=== PATIENT | male | born 1965 | race Caucasian/White ===

== ENCOUNTER 2017-07-20 16:27 | Emergency (ER) | payer BC ==
[~2017-07-20] VITALS: Ht 177.8 cm; Wt 83.0 kg
[~2017-07-20 16:27] MED LIST: ALPR0.255 PO; Acetaminophen PO; FLUT1DIS28 INH; GUAI600T53 PO; HYDR-3326 PO; LACT1CAP57 PO
--- NOTE | 2017-07-20 16:49 | NUR ---
Patient is AOX4, refusing CT scan, MD notified.
--- NOTE | 2017-07-20 16:50 | NUR ---
Patient is also refusing IV MD val notified
[2017-07-20 17:00] LABS: *BLOOD, URINE Trace-lysed (NEGATIVE); *COLOR,URINE DARK YELLOW (YELLOW); *KETONES,URINE NEGATIVE (NEGATIVE); *PROTEIN,URINE 1+ (NEGATIVE); *UROBILINOGEN,URINE 0.2 E.U./dl (NORMAL); LEUKOCYTE ESTERASE ,URINE NEGATIVE (NEGATIVE); NITRITE, URINE NEGATIVE (NEGATIVE); UGLUCOSE NEGATIVE (NEGATIVE)
[2017-07-20] MEDS ORDERED: IV NORMAL SALINE 1000 ML BAG IV ONE (17:00)
[2017-07-20] MEDS ORDERED: HYDROMORPHONE 1 MG/1 ML DISP.SYRIN IV ONE (17:00)
[2017-07-20] MEDS ORDERED: ONDANSETRON 4 MG/2 ML VIAL IV ONE (17:00)
[2017-07-20] MEDS ORDERED: LIOT25TA9 PO (17:02)
[2017-07-20] MEDS ORDERED: POLY119P2 PO (17:02)
[2017-07-20] MEDS ORDERED: MECL-102 PO (17:02)
[2017-07-20] MEDS ORDERED: HYDROMORPHONE 2 MG/1 ML DISP.SYRIN ONE (17:05)
[2017-07-20] MEDS ORDERED: ONDANSETRON 4 MG/2 ML VIAL ONE (17:05)
[2017-07-20 17:08] LABS: BASOPHILS % (AUTO) 0.7 % (0.0-2.0); EOSINOPHILS # (AUTO) 0.1 K/uL (0.0-0.7); EOSINOPHILS % (AUTO) 1.4 % (0.0-7.0); HEMATOCRIT 46.6 % (40-50); HEMOGLOBIN 15.4 G/DL (14.0-18.0); LYMPHOCYTES # (AUTO) 0.9 K/UL (0.8-4.8); LYMPHOCYTES % (AUTO) 13.7 % (20.5-51.5); MEAN CORPUSCULAR HEMOGLOBIN 31.1 UUG (27.0-31.0); MEAN CORPUSCULAR HGB CONC 33 g/dL (32.0-37.0); MONOCYTES # (AUTO) 0.6 K/UL (0.1-1.30); MONOCYTES % (AUTO) 9.8 % (0.0-11.0); NEUTROPHILS # (AUTO) 4.9 K/UL (1.8-8.9); NEUTROPHILS % (AUTO) 74.4 % (38.5-71.5); PLATELET COUNT (AUTO) 207 K/UL (150-450); RED BLOOD CELL COUNT(AUTO) 4.96 MIL/UL (4.7-6.1); WHITE BLOOD COUNT (AUTO) 6.5 K/UL (4.0-11.2)
[2017-07-20 17:14] LABS: CREATININE 1.1 mg/dL (0.6-1.3)
[2017-07-20 17:20] LABS: BILIRUBIN,DIRECT 0.1 mg/dL (0.0-0.2); BILIRUBIN,TOTAL 0.3 mg/dL (0.2-1.0)
[2017-07-20 17:26] LABS: *BILIRUBIN,URIN NEGATIVE (NEGATIVE); *CLARITY,URINE SLIGHTLY HAZY (CLEAR)
[2017-07-20 17:27] LABS: MUCUS,URINE MANY /LPF (0-FEW); WBC,URINE 0-3 /HPF (0-3)
--- NOTE | 2017-07-20 17:56 | NUR ---
Patient is resting comfortably on gurney while watching TV, pt refused pains medicines, still for U/S.
--- NOTE | 2017-07-20 18:22 | NUR ---
PATIENT IS PAIN FREE AT THIS TIME. IV removed. Catheter intact and site benign. Pressure and 4x4 gauze applied to site. No bleeding noted. Patient discharged to home in stable conditon. Written and verbal after care instructions given to patient and family members. Patient and family verbalized understanding of instructions.
== END 2017-07-20 18:26 | disposition home or self-care (01) ==
LOC: ER 16:33
DX: G89.18 Other acute postprocedural pain (principal); R10.11 Right upper quadrant pain; J45.909 Unspecified asthma, uncomplicated; K21.9 Gastro-esophageal reflux disease without esophagitis; Z86.010 Personal history of colon polyps
CPT/HCPCS: 36415; 71010; 76705; 80048; 80076; 81001; 83690; 84484; 85025; 85730; 96361; 96374; 99285; A4663; J1170; J2405; J7030 ×2; 70030-TC

== ENCOUNTER 2017-08-17 20:52 | Emergency (ER) | payer BC ==
[~2017-08-17] VITALS: Ht 177.8 cm; Wt 78.9 kg
[~2017-08-17 20:52] MED LIST changes: -HYDR-3326 PO; -LACT1CAP57 PO; +LIOT25TA9 PO; +MECL-102 PO; +POLY119P2 PO
--- NOTE | 2017-08-17 21:35 | NUR ---
PATIENT WALKED INTO ER C/O SOB X 2HRS WITH FEVER,CHILLS. PATIENT STATES SYMPTOMS STARTED 3 DAYS AGO. HAS WHEEZING.
[2017-08-17] MEDS ORDERED: ACETAMINOPHEN ES 500 MG TABLET PO ONE (22:00)
[2017-08-17] MEDS ORDERED: methylPREDNISolone SOD SUCC 125 MG/2 ML VIAL IV ONE (22:00)
[2017-08-17] MEDS ORDERED: IPRATROPIUM BROMIDE 0.5 MG/2.5 ML NEBU NEB ONE ×2 (22:00→22:45)
[2017-08-17] MEDS ORDERED: IV NORMAL SALINE 1000 ML BAG IV ONE (22:00)
[2017-08-17] MEDS ORDERED: ALBUTEROL SULFATE 2.5 MG/3 ML NEBU NEB ONE ×2 (22:00→22:45)
[2017-08-17] MEDS ORDERED: ACETAMINOPHEN ES 500 MG TABLET ONE (22:15)
[2017-08-17] MEDS ORDERED: methylPREDNISolone SOD SUCC 125 MG/2 ML VIAL ONE (22:15)
[2017-08-17 22:16] LABS: EOSINOPHILS # (AUTO) 0.2 K/uL (0.0-0.7); EOSINOPHILS % (AUTO) 3.3 % (0.0-7.0); HEMATOCRIT 44.2 % (36.7-47.1); HEMOGLOBIN 15.1 g/dL (12.5-16.3); LYMPHOCYTES # (AUTO) 0.7 K/uL (20.0-40.0); LYMPHOCYTES % (AUTO) 14.2 % (20.5-51.5); MEAN CORPUSCULAR HEMOGLOBIN 32.2 uug (23.8-33.4); MEAN CORPUSCULAR HGB CONC 34 g/dL (32.5-36.3); MEAN CORPUSCULAR VOLUME 94.2 fL (73.0-96.2); MONOCYTES # (AUTO) 0.6 K/uL (2.0-10.0); NEUTROPHILS # (AUTO) 3.3 K/uL (1.8-8.9); NEUTROPHILS % (AUTO) 69.5 % (38.5-71.5); PLATELET COUNT (AUTO) 184 K/uL (152-348); RED BLOOD CELL COUNT(AUTO) 4.69 MIL/uL (4.06-5.63); WHITE BLOOD COUNT (AUTO) 4.8 K/uL (3.6-10.2)
[2017-08-17] MEDS ORDERED: IPRATROPIUM BROMIDE 0.5 MG/2.5 ML NEBU ONE ×2 (22:18→23:28)
[2017-08-17] MEDS ORDERED: ALBUTEROL SULFATE 2.5 MG/3 ML NEBU ONE ×2 (22:18→23:28)
[2017-08-17 22:20] LABS: CREATININE 1.1 mg/dL (0.6-1.3); POTASSIUM 3.9 mmol/L (3.5-5.1)
[2017-08-17 22:27] LABS: BILIRUBIN,DIRECT 0.1 mg/dL (0.0-0.2); BILIRUBIN,TOTAL 0.3 mg/dL (0.2-1.0); TOTAL PROTEIN, SERUM 7.2 g/dL (6.4-8.2)
--- NOTE | 2017-08-17 23:52 | NUR ---
PATIENT STATES "I'AM FEELING BETTER." PATIENT WATCHING TV WITH FAMILY AT BEDSIDE
--- NOTE | 2017-08-18 00:03 | NUR ---
IV removed. Catheter intact and site benign. Pressure and 4x4 gauze applied to site. No bleeding noted.
[2017-08-18 00:04] VITALS: BP 128/75
--- NOTE | 2017-08-18 00:05 | NUR ---
Patient discharged to home in stable conditon WITH FAMILY TAKING PATIENT HOME. Written and verbal after care instructions given. Patient verbalizes understanding of instructions.
== END 2017-08-18 00:05 | disposition home or self-care (01) ==
LOC: ER 21:02
DX: J20.9 Acute bronchitis, unspecified (principal); J45.909 Unspecified asthma, uncomplicated; K21.9 Gastro-esophageal reflux disease without esophagitis
CPT/HCPCS: 36415; 70030-TC; 83605; 85025; 85730; 87040; 87400; 93005; A4663; J2930; J3590; J7030

== ENCOUNTER 2018-01-27 19:34 | Emergency (ER) | payer BC ==
[~2018-01-27] VITALS: Ht 177.8 cm; Wt 71.2 kg
--- NOTE | 2018-01-27 19:50 | NUR ---
DR CHASITY BERUMEN MD AT BEDSIDE FOR MSE.
--- NOTE | 2018-01-27 20:04 | NUR ---
LAB AT PT BEDSIDE FOR BLOOD DRAW.
[2018-01-27 20:06] LABS: BASOPHILS # (AUTO) 0.1 K/uL (0.0-8.0); BASOPHILS % (AUTO) 1.4 % (0.0-2.0); EOSINOPHILS # (AUTO) 0.4 K/uL (0.0-0.7); EOSINOPHILS % (AUTO) 6.1 % (0.0-7.0); HEMATOCRIT 43.6 % (36.7-47.1); HEMOGLOBIN 14.8 g/dL (12.5-16.3); LYMPHOCYTES % (AUTO) 33.1 % (20.5-51.5); MEAN CORPUSCULAR HEMOGLOBIN 32.7 uug (23.8-33.4); MEAN CORPUSCULAR HGB CONC 34 g/dL (32.5-36.3); MEAN CORPUSCULAR VOLUME 96.4 fL (73.0-96.2); MONOCYTES # (AUTO) 0.5 K/uL (2.0-10.0); MONOCYTES % (AUTO) 8.1 % (0.0-11.0); NEUTROPHILS # (AUTO) 3.1 K/uL (1.8-8.9); NEUTROPHILS % (AUTO) 51.3 % (38.5-71.5); PLATELET COUNT (AUTO) 210 K/uL (152-348); RED BLOOD CELL COUNT(AUTO) 4.52 MIL/uL (4.06-5.63); WHITE BLOOD COUNT (AUTO) 6.1 K/uL (3.6-10.2)
[2018-01-27 20:14] LABS: CREATININE 1.1 mg/dL (0.6-1.3); POTASSIUM 4.2 mmol/L (3.5-5.1)
[2018-01-27 20:19] LABS: BILIRUBIN,DIRECT 0.1 mg/dL (0.0-0.2); BILIRUBIN,TOTAL 0.5 mg/dL (0.2-1.0); TOTAL PROTEIN, SERUM 7.2 g/dL (6.4-8.2)
--- NOTE | 2018-01-27 20:29 | NUR ---
PT AMBULATED TO AND FROM BATHROOM W/ STEADY GAIT. DENIES SOB, N/V, DIZZINESS.
[2018-01-27 20:37] LABS: *BILIRUBIN,URIN NEGATIVE (NEGATIVE); *BLOOD, URINE NEGATIVE (NEGATIVE); *CLARITY,URINE CLEAR (CLEAR); *COLOR,URINE YELLOW (YELLOW); *KETONES,URINE NEGATIVE (NEGATIVE); *PROTEIN,URINE NEGATIVE (NEGATIVE); *UROBILINOGEN,URINE 0.2 E.U./dl (NORMAL); LEUKOCYTE ESTERASE ,URINE NEGATIVE (NEGATIVE); NITRITE, URINE NEGATIVE (NEGATIVE); UGLUCOSE NEGATIVE (NEGATIVE)
[2018-01-27 20:39] LABS: BACTERIA,URINE MODERATE /HPF (NONE SEEN); RBC,URINE 0-3 /HPF (0-3); SQUAMOUS EPITHELIAL CELL,UR FEW /HPF (NONE SEEN); WBC,URINE 0-3 /HPF (0-3)
--- NOTE | 2018-01-27 20:43 | NUR ---
Patient discharged to home in stable conditon. Written and verbal after care instructions given. Patient verbalizes understanding of instructions. Pt ambulated from ER w/ steady gait. Denies LI, dizziness, N/V, SOB, CP. No distress noted. Pt took all personal belongings. Accompanied by significant other.
[2018-01-27 20:45] VITALS: BP 122/78
== END 2018-01-27 20:45 | disposition home or self-care (01) ==
LOC: ER 19:36
DX: R42 Dizziness and giddiness (principal); R53.1 Weakness; J45.909 Unspecified asthma, uncomplicated; K21.9 Gastro-esophageal reflux disease without esophagitis; G43.909 Migraine, unspecified, not intractable, without status migrainosus; Z79.899 Other long term (current) drug therapy
CPT/HCPCS: 36415; 80048; 80076; 81001; 83690; 84484; 85025; 93005; 99285; A4663; 70030-TC

== ENCOUNTER 2020-02-08 16:53 | Emergency (ER) | payer BC ==
[~2020-02-08] VITALS: Ht 177.8 cm; Wt 74.4 kg
[~2020-02-08 16:53] MED LIST changes: +LIOT25TA13 PO; -LIOT25TA9 PO; -MECL-102 PO; +MECL-159 PO
--- NOTE | 2020-02-08 18:30 | NUR ---
Air ankle splint and crutches provided. Patient refused to have any crutch training states he has used them before. CMS intact. Patient discharged to home in stable condition. Written and verbal after care instructions given. Patient verbalizes understanding of instructions. Stressed follow up or return to ER for worsening s/s.
[2020-02-08 18:31] VITALS: BP 119/79
== END 2020-02-08 18:32 | disposition home or self-care (01) ==
LOC: ER 16:54
DX: S09.90XA Unspecified injury of head, initial encounter (principal); S16.1XXA Strain of muscle, fascia and tendon at neck level, initial encounter; S93.402A Sprain of unspecified ligament of left ankle, initial encounter; S39.012A Strain of muscle, fascia and tendon of lower back, initial encounter; V43.52XA Car driver injured in collision with other type car in traffic accident, initial encounter; Y92.410 Unspecified street and highway as the place of occurrence of the external cause; J45.909 Unspecified asthma, uncomplicated; G89.29 Other chronic pain; Z98.1 Arthrodesis status
CPT/HCPCS: 70450; 72100; 72125; 73610; A4663

== ENCOUNTER 2025-02-06 18:20 | Emergency (ER) | payer SELFPAY ==
[~2025-02-06] VITALS: Ht 177.8 cm; Wt 83.9 kg
[2025-02-06 18:42] LABS: BASOPHILS % (AUTO) 0.8 % (0.0-2.0); EOSINOPHILS # (AUTO) 0.2 K/uL (0.0-0.7); EOSINOPHILS % (AUTO) 4.5 % (0.0-7.0); HEMATOCRIT 46.2 % (36.7-47.1); HEMOGLOBIN 15.5 g/dL (12.5-16.3); LYMPHOCYTES % (AUTO) 17.7 % (20.5-51.5); MEAN CORPUSCULAR HEMOGLOBIN 32.9 uug (23.8-33.4); MEAN CORPUSCULAR HGB CONC 34 g/dL (32.5-36.3); MEAN CORPUSCULAR VOLUME 97.9 fL (73.0-96.2); MONOCYTES # (AUTO) 0.4 K/uL (0.1-1.30); MONOCYTES % (AUTO) 6.5 % (0.0-11.0); NEUTROPHILS # (AUTO) 3.8 K/uL (1.8-8.9); NEUTROPHILS % (AUTO) 70.5 % (38.5-71.5); PLATELET COUNT (AUTO) 168 K/uL (152-348); RED BLOOD CELL COUNT(AUTO) 4.72 MIL/uL (4.06-5.63); RED CELL DISTRIBUTION WIDTH 13.4 % (12.1-16.2); WHITE BLOOD COUNT (AUTO) 5.4 K/uL (3.6-10.2)
[2025-02-06 18:43] LABS: DIFFERENTIAL COMMENT 1
[2025-02-06 18:49] LABS: CALCIUM 8.7 mg/dL (8.5-10.1); CARBON DIOXIDE 26 mmol/L (21-32); CHLORIDE 102 mmol/L (98-107); CREATININE 1.3 mg/dL (0.6-1.3); GLUCOSE 103 mg/dL (74-106); SODIUM SERUM 136 mmol/L (136-145); UREA NITROGEN, BLOOD 20 mg/dL (7-18)
[2025-02-06] MEDS ORDERED: ASPIRIN 81 MG TAB.CHEW ONE (18:52)
[2025-02-06] MEDS: ASPIRIN 81 MG TAB.CHEW PO ONE (18:54)
[2025-02-06 19:01] LABS: ALANINE AMINOTRANSFERASE 27 U/L (16-63); ALBUMIN 3.5 g/dL (3.4-5.0); ALKALINE PHOSPHATASE 69 U/L (50-136); ASPARTATE AMINOTRANSFERASE 16 U/L (15-37); BILIRUBIN,DIRECT 0.2 mg/dL (0.0-0.2); BILIRUBIN,TOTAL 0.6 mg/dL (0.2-1.0); NT-PRO BNP 68 pg/mL (0-125); TOTAL PROTEIN, SERUM 6.8 g/dL (6.4-8.2)
[2025-02-06 22:08] VITALS: BP 120/78; O2SAT 99
== END 2025-02-06 22:09 | disposition home or self-care (01) ==
LOC: ER 18:20
DX: R07.89 Other chest pain (principal); R06.02 Shortness of breath; R05.9 Cough, unspecified; K21.9 Gastro-esophageal reflux disease without esophagitis; J45.909 Unspecified asthma, uncomplicated; Z79.51 Long term (current) use of inhaled steroids; Z88.7 Allergy status to serum and vaccine; Z86.69 Personal history of other diseases of the nervous system and sense organs; Z87.09 Personal history of other diseases of the respiratory system; Z87.19 Personal history of other diseases of the digestive system; Z87.39 Personal history of other diseases of the musculoskeletal system and connective tissue
CPT/HCPCS: 36415; 71045; 84484; 85025; A4606; A4663